=== PATIENT | female | born 1995 | race American Indian/Alaskan Native ===

== ENCOUNTER 2017-08-20 04:41 | Outpatient (CLI) | payer MEDICAID ==
[2017-08-20 05:31] VITALS: BP 127/66
== END 2017-08-20 05:35 | disposition home or self-care (01) ==
LOC: TRG 04:41
PROVIDERS: ATTEND Obstetrics & Gynecology
DX: O47.1 False labor at or after 37 completed weeks of gestation (principal); Z3A.38 38 weeks gestation of pregnancy

== ENCOUNTER 2017-08-20 10:10 | Inpatient (IN) | payer MEDICAID ==
[2017-08-20] MEDS ORDERED: STADOL IV PRN (10:54)
[2017-08-20] MEDS ORDERED: LACTATED RINGERS 1,000 ML IV SCH ×2 (11:00→13:00)
[2017-08-20] MEDS ORDERED: LACTATED RINGERS 1,000 ML IV ONE (11:09)
[2017-08-20] MEDS ORDERED: LACTATED RINGERS 1,000 ML ONE (11:11)
[2017-08-20 11:25] LABS: Hematocrit 31.6 % (30.3-42.9); Hemoglobin 10.3 gm/dl (10.1-14.3); Mean Corpuscular Volume 91 fl (79-97); Red Blood Count 3.49 M/mm3 (3.65-5.03); White Blood Count 12.8 K/mm3 (4.5-11.0)
[2017-08-20 11:26] LABS: Mean Corpuscular HGB Conc 33 % (30-34); Mean Corpuscular Hemoglobin 30 pg (28-32); Platelet Count 277 K/mm3 (140-440); Red Cell Distribution Width 14.2 % (13.2-15.2)
[2017-08-20] MEDS ORDERED: fentaNYL-BUPIV 2 MCG/ML-0.125% 200 MCG/100 ML BAG EPIDURAL ONE (12:21)
--- NOTE | 2017-08-20 12:36 | History and Physical Report ---
History of Present Illness Date of examination: 08/20/17 Date of admission: 08/20/17 10:11 Chief complaint: Labor History of present illness: Pt is a 22yo BF EDC 09/03/17; EGA 38 0/7 weeks presents to L&D complaining of RUC's q 3-4 mins. She received care at [facility] since 10 weeks and course has been unremarkable except for an Abnormal RGS followed by a Normal 3OGTT. records are available and GBS is Negative. Past History Past Medical History: no pertinent history Past Surgical History: no surgical history Family/Genetic History: diabetes, heart disease, hypertension, cancer Social history: no significant social history, single - Obstetrical History Expected Date of Delivery: 09/03/17 Actual Gestation: 38 Week(s) 0 Day(s) : 1 Medications and Allergies Allergies Allergy/AdvReac Type Severity Reaction Status Date / Time No Known Allergies Allergy Verified 08/20/17 04:42 Home Medications Medication Instructions Recorded Confirmed Last Taken Type Pnv No.103/Folic/Om3s/Fish Oil 1 dose PO DAILY MDD 1 08/20/17 08/20/17 08/20/17 08:00 History [ Gummies] 1 Active Meds: Active Medications Butorphanol Tartrate (Stadol) 2 mg IV Q2H PRN PRN Reason: Labor Pain Last Admin: 08/20/17 11:32 Dose: 2 mg Lactated Ringer's (Lactated Ringers) 1,000 mls @ 125 mls/hr IV DIRECT KASEY Last Admin: 08/20/17 12:00 Dose: 125 mls/hr Review of Systems All systems: negative - Vital Signs Vital signs: Vital Signs Temp Pulse Resp BP Pulse Ox 98.5 F 93 H 16 128/75 98 08/20/17 10:25 08/20/17 10:25 08/20/17 10:25 08/20/17 10:25 08/20/17 10:25 Temp Pulse Resp BP Pulse Ox 98.5 F 86 16 126/59 98 08/20/17 10:25 08/20/17 12:31 08/20/17 10:25 08/20/17 12:31 08/20/17 12:31 - Physical Exam Breasts: Positive: deferred Cardiovascular: Regular rate Lungs: Positive: Clear to auscultation Abdomen: Positive: normal appearance Genitourinary (Female): Positive: normal external genitalia Vagina: Positive: normal moisture Uterus: Positive: enlarged Extremities: Positive: normal - Obstetrical FHR: category 1 Uterine Contraction Monitor Mode: External Cervical Dilatation: 7.5 Cervical Effacement Percentage: 80 station: -1 Uterine Contraction Pattern: Regular Uterine Tone Measurement Phase: Contraction Uterine Contraction Intensity: Moderate Results Result Diagrams: 08/20/17 10:51 Abnormal lab results 08/20/17 Range/Units 10:51 WBC 12.8 H (4.5-11.0) K/mm3 RBC 3.49 L (3.65-5.03) M/mm3 All other labs normal. Assessment and Plan - Patient Problems (1) 38 weeks gestation of Onset Date: 08/20/17 Current Visit: Yes Status: Acute Plan to address problem: A: IUP @ 38 0/7 weeks in labor GBS Negative P: Admit to L&D for expectant vaginal delivery
[2017-08-20] MEDS ORDERED: NARCAN 0.4 MG/1 ML IV PRN (12:39)
[2017-08-20] MEDS ORDERED: MINERAL OIL PO PRN (12:39)
[2017-08-20] MEDS ORDERED: BRETHINE SUB-Q PRN (12:39)
[2017-08-20] MEDS ORDERED: ZOFRAN IV PRN ×2 (12:39→17:10)
[2017-08-20] MEDS ORDERED: SUBLIMAZE IV PRN (12:39)
[2017-08-20] MEDS ORDERED: XYLOCAINE 2% INFILTRATI ONE (12:39)
[2017-08-20] MEDS ORDERED: BRETHINE IVP PRN (12:39)
[2017-08-20] MEDS ORDERED: ePHEDrine SULFATE IV PRN ×2 (12:39→14:02)
[2017-08-20] MEDS ORDERED: PITOCin/NS 20 UNIT/1000ML DRIP 20 UNITS/1,000 ML BAG IV SCH ×2 (13:00→18:00)
[2017-08-20] MEDS ORDERED: PITOCin/NS 30 UNIT/500ML 30 UNITS/500 ML BAG IV SCH (13:00)
[2017-08-20] MEDS: PITOCin/NS 30 UNIT/500ML 30 UNITS/500 ML BAG IV SCH ×2 (13:30→14:02)
--- NOTE | 2017-08-20 14:01 | Anesthesia Consultation ---
Anesthesia Consult and Med Hx Date of service: 08/20/17 - Airway Anesthetic Teeth Evaluation: Good ROM Head & Neck: Adequate Mental/Hyoid Distance: Adequate Mallampati Class: Class II Intubation Access Assessment: Probably Good - Pre-Operative Health Status ASA Pre-Surgery Classification: ASA2 Proposed Anesthetic Plan: Epidural, Spinal - Pulmonary Hx Asthma: No COPD: No Hx Pneumonia: No - Central Nervous System Hx Seizures: No Hx Back Pain: No (scoliosis) Hx Psychiatric Problems: No - Endocrine Hx Renal Disease: No Hx End Stage Renal Disease: No Hx Hypothyroidism: No Hx Hyperthyroidism: No - Hematic Hx Anemia: No Hx Sickle Cell Disease: No - Other Systems Hx Alcohol Use: No
[2017-08-20] MEDS ORDERED: NARCAN 2 MG/2 ML IV PRN (14:02)
[2017-08-20] MEDS ORDERED: MORPHINE IV PRN (14:39)
[2017-08-20] MEDS ORDERED: fentaNYL-BUPIV 2 MCG/ML-0.125% 200 MCG/100 ML BAG EPIDURAL SCH (15:00)
--- NOTE | 2017-08-20 17:09 | Procedure Note ---
OB Delivery Note - Delivery Date of Delivery: 08/20/17 Surgeon: CRISPIN LONG Estimated blood loss: 100cc - Vaginal Delivery presentation: vertex Delivery position: OA Intrapartum events: none Delivery induction: oxytocin Delivery augmentation: rupture of membranes, pitocin Delivery monitor: external FHT, external uterine Route of delivery: Delivery placenta: spontaneous Delivery cord: 3 umbilical vessels Episiotomy: none Delivery laceration: 2nd degree (perineal) Delivery repair: vicryl Anesthesia: epidural Delivery comments: delivered OA and placed on Mom's chest for [id number] bonding and delayed cord clamping. Infant then had an apneic episode which resolved after getting Narcan from Peds/RT - Infant A at 1 minute: 8 at 5 minutes: 9 Infant Gender: Male (3166gms)
[2017-08-20] MEDS ORDERED: BENADRYL PO PRN (17:10)
[2017-08-20] MEDS ORDERED: PHENERGAN PR PRN (17:10)
[2017-08-20] MEDS ORDERED: PHENERGAN PO PRN (17:10)
[2017-08-20] MEDS ORDERED: TYLENOL PO PRN (17:10)
[2017-08-20] MEDS ORDERED: LANSINOH TP PRN (17:10)
[2017-08-20] MEDS ORDERED: DULCOLAX PR PRN (17:10)
[2017-08-20] MEDS ORDERED: NORCO 5/325 PO PRN (17:10)
[2017-08-20] MEDS ORDERED: MILK OF MAGNESIA PO PRN (17:10)
[2017-08-20] MEDS ORDERED: SODIUM CHLORIDE FLUSH SYRINGE 10 ML IV SCH (18:00)
[2017-08-20] MEDS: COLACE PO SCH (22:41)
[2017-08-20] MEDS: MOTRIN PO SCH (22:41)
[2017-08-20] MEDS: FEOSOL PO SCH (22:41)
[2017-08-20] MEDS: TUCKS PAD TP PRN (22:41)
[2017-08-20] MEDS: PERCOCET 5/325 PO PRN (22:42)
[2017-08-21 05:44] LABS: Hematocrit 27.8 % (30.3-42.9)
[2017-08-21] MEDS ORDERED: BOOSTRIX IM ONE (06:00)
--- NOTE | 2017-08-21 07:53 | Progress Note ---
Assessment and Plan PPD# 1 s/p -Doing well P: -Continue routine post care -Anticipate discharge in 24-48 hours - Patient Problems (1) (normal spontaneous vaginal delivery) Current Visit: Yes Status: Acute Subjective - Subjective Date of service: 08/21/17 Principal diagnosis: PPD#1 Interval history: Patient seen and examined, stable overnight. Has hemorrhoids which are uncomfortable otherwise no other issues. On exam, hemmorrhoids do not feel thrombosed. in NICU but appears stable Patient reports: appetite normal, voiding normally, pain well controlled, no dizzy ambulation, no nauseated [place]: in NICU Objective - Vital Signs Latest vital signs: Vital Signs Temp Pulse Resp BP BP Pulse Ox 08/21/17 00:10 87 18 108/63 08/20/17 20:05 98.8 F 92 H 18 113/64 08/20/17 19:08 87 131/78 08/20/17 18:53 86 133/81 08/20/17 18:38 85 145/80 08/20/17 18:23 91 H 134/85 08/20/17 18:09 88 120/79 08/20/17 17:53 86 127/83 08/20/17 17:39 90 126/81 08/20/17 17:24 96 H 131/73 08/20/17 17:09 93 H 138/75 08/20/17 16:54 104 H 143/76 08/20/17 16:46 104 H 100 08/20/17 16:41 118 H 100 08/20/17 16:39 110 H 163/86 08/20/17 16:36 95 H 100 08/20/17 16:31 89 100 08/20/17 16:26 86 99 08/20/17 16:24 81 128/70 08/20/17 16:21 75 100 08/20/17 16:16 78 99 08/20/17 16:11 87 100 08/20/17 16:09 98 H 128/71 08/20/17 16:06 86 100 08/20/17 16:01 78 100 17 15:56 82 99 17 15:55 78 126/70 08/20/17 15:51 92 H 99 08/20/17 15:46 90 100 12/13/17 15:41 80 100 12/13/17 15:39 84 122/73 12/13/17 15:36 89 100 12/13/17 15:31 90 100 12/13/17 15:26 86 100 12/13/17 15:25 97.9 F 18 12/13/17 15:24 76 126/71 12/13/17 15:21 78 100 12/13/17 15:16 86 100 12/13/17 15:11 78 100 12/13/17 15:08 75 121/66 12/13/17 15:06 84 100 12/13/17 15:01 82 100 12/13/17 14:56 90 100 12/13/17 14:55 85 116/61 12/13/17 14:51 87 100 12/13/17 14:46 92 H 99 12/13/17 14:41 101 H 100 12/13/17 14:38 99 H 127/74 12/13/17 14:36 139 H 100 12/13/17 14:31 86 100 12/13/17 14:26 90 100 12/13/17 14:23 84 120/69 12/13/17 14:21 90 100 12/13/17 14:16 82 100 12/13/17 14:11 85 100 12/13/17 14:10 84 121/64 12/13/17 14:06 86 100 12/13/17 14:01 85 100 12/13/17 13:56 91 H 100 12/13/17 13:53 86 112/60 12/13/17 13:51 92 H 100 12/13/17 13:46 93 H 100 12/13/17 13:41 90 100 12/13/17 13:40 79 116/63 12/13/17 13:36 82 100 12/13/17 13:31 88 100 12/13/17 13:26 79 100 12/13/17 13:24 83 117/61 12/13/17 13:21 80 99 12/13/17 13:16 89 100 12/13/17 13:11 89 98 12/13/17 13:08 95 H 121/68 12/13/17 13:06 88 98 12/13/17 13:01 92 H 99 12/13/17 12:56 89 99 12/13/17 12:54 83 123/67 12/13/17 12:51 85 98 08/20/17 12:47 98.0 F 18 08/20/17 12:46 85 98 08/20/17 12:41 92 H 98 08/20/17 12:37 88 134/67 08/20/17 12:36 89 99 08/20/17 12:35 86 130/64 08/20/17 12:33 87 132/62 08/20/17 12:31 86 126/59 98 08/20/17 12:29 83 131/59 08/20/17 12:27 90 133/64 08/20/17 12:26 90 97 08/20/17 12:25 80 126/61 08/20/17 12:23 83 131/63 08/20/17 12:21 88 132/64 97 08/20/17 12:19 80 134/68 08/20/17 12:17 83 140/74 08/20/17 12:16 87 99 08/20/17 12:15 96 H 147/84 08/20/17 12:13 87 120/66 08/20/17 12:11 90 125/66 96 08/20/17 12:09 86 123/72 08/20/17 11:28 93 H 135/78 08/20/17 10:36 99 H 98 08/20/17 10:31 91 H 128/75 98 08/20/17 10:25 98.5 F 93 H 16 128/75 98 Intake and Output 08/20/17 08/20/17 08/21/17 15:59 23:59 07:59 Intake Total 2.133 Output Total 1500 800 Balance 2.133 -1500 -800 Intake: IV 2.133 PITOCin/NS 30 UNIT/500ML 2.133 30 units In 500 ml @ 4 mls/hr IV TITR KASEY Rx#: [id number] Output: Urine 1500 800 Indwelling Catheter 600 Void 900 800 Other: Total, Output Amount 900 800 Weight 65.771 kg Estimated Blood Loss 100 - Exam Extremities: Present: normal - Labs Labs: Abnormal lab results 08/20/17 08/21/17 Range/Units 10:51 05:29 WBC 12.8 H (4.5-11.0) K/mm3 RBC 3.49 L (3.65-5.03) M/mm3 Hgb 9.0 L (10.1-14.3) gm/dl Hct 27.8 L (30.3-42.9) %
--- NOTE | 2017-08-21 08:00 | Discharge Summary ---
Providers - Providers Date of Admission: 08/20/17 10:11 Date of discharge: 08/22/17 Attending physician: CRISPIN LONG Primary care physician: CRISPIN LONG Hospitalization Reason for admission: active labor, IUP at term Delivery: Episiotomy: none Laceration: 2nd degree Incision: dry, intact Other procedures: none complications: none Discharge diagnosis: IUP at term delivered [place] baby: male Hospital course: Uncomplicated hospital course Condition at discharge: Good Disposition: DC-01 TO HOME OR SELFCARE - Discharge Diagnoses (1) (normal spontaneous vaginal delivery) Status: Acute Plan - Discharge Medications Prescriptions: HYDROcodone/APAP 5-325 [Prosper 5/325] 1 each PO Q6HR PRN #10 tablet PRN Reason: Pain Hydrocortisone/Pramoxine [Proctofoam-Hc Foam] 10 gm RC PRN #1 foam NS Ibuprofen [Motrin 600 MG tab] 600 mg PO Q8H PRN #30 tablet PRN Reason: Pain Multivitamin with Iron [Multivitamins with Iron] 1 each PO DAILY #30 tablet - Provider Discharge Summary Activity: no sex for 6 weeks, no heavy lifting 4 weeks, no strenuous exercise Diet: routine Additional instructions: [] Smoking cessation referral if applicable(refer to patient education folder for contact #) [] Refer to [facility] Booklet Call your doctor immediately for: * Fever > 100.5 * Heavy vaginal bleeding ( >1 pad per hour) * Severe persistent headache * Shortness of breath * Reddened, hot, painful area to leg or breast * Drainage or odor from incision. * Keep incision clean and dry at all times and follow doctor's instructions regarding bathing/showering - Follow up plan Follow up: CRISPIN LONG MD [Primary Care Provider] - 6 Weeks
[2017-08-21] MEDS ORDERED: DERMOPLAST TP ONE (08:51)
[2017-08-21] MEDS: TUCKS PAD TP PRN (08:54)
[2017-08-21] MEDS: MOTRIN PO SCH (08:55)
[2017-08-21] MEDS: COLACE PO SCH (11:16)
[2017-08-21] MEDS: PRENATAL VITAMIN PO SCH (11:16)
[2017-08-21] MEDS: FEOSOL PO SCH (11:16)
[2017-08-21] MEDS ORDERED: PROCTOFOAM-HC PR PRN (12:00)
[2017-08-21] MEDS ORDERED: M-M-R II VACCINE SUB-Q ONE (17:10)
[2017-08-22] MEDS: COLACE PO SCH ×2 (00:01→11:55)
[2017-08-22] MEDS: PERCOCET 5/325 PO PRN (00:01)
[2017-08-22] MEDS: MOTRIN PO SCH ×3 (00:02→11:56)
[2017-08-22] MEDS ORDERED: BOOSTRIX IM ONE (05:12)
[2017-08-22 08:42] VITALS: BP 119/68
[2017-08-22] MEDS: FEOSOL PO SCH (11:55)
[2017-08-22] MEDS: PRENATAL VITAMIN PO SCH (11:56)
== END 2017-08-22 14:10 | disposition home or self-care (01) | DRG 775 ==
LOC: TRG 10:10 → LD 10:11 → TRG 10:12 → OB 19:49
PROVIDERS: ADMIT Obstetrics & Gynecology; ATTEND Obstetrics & Gynecology
PROC: 10E0XZZ Delivery of Products of Conception, External Approach (ICD-10-PCS; principal; 2017-08-20)
PROC: 0KQM0ZZ Repair Perineum Muscle, Open Approach (ICD-10-PCS; 2017-08-20)
PROC: 3E033VJ Introduction of Other Hormone into Peripheral Vein, Percutaneous Approach (ICD-10-PCS; 2017-08-20)
PROC: 3E0R3BZ Introduction of Anesthetic Agent into Spinal Canal, Percutaneous Approach (ICD-10-PCS; 2017-08-20)
PROC: 00HU33Z Insertion of Infusion Device into Spinal Canal, Percutaneous Approach (ICD-10-PCS; 2017-08-20)
PROC: 3E0234Z Introduction of Serum, Toxoid and Vaccine into Muscle, Percutaneous Approach (ICD-10-PCS; 2017-08-22)
DX: O22.43 Hemorrhoids in pregnancy, third trimester (principal); Z23 Encounter for immunization; O75.89 Other specified complications of labor and delivery; O70.1 Second degree perineal laceration during delivery; Z3A.38 38 weeks gestation of pregnancy; Z37.0 Single live birth
CPT/HCPCS: 36415; 85014; 85018; 85027; 86592; 86850; 86900; 86901; 90471; 90715; J0595; J2310; J2405; J2590; J7120